=== PATIENT | male | born 1960 | race Caucasian/White ===

== ENCOUNTER 2017-08-30 06:26 | Day surgery (SDC) | payer OTHER ==
[2017-08-29 16:39] VITALS: BMI 28.8
[2017-08-30] MEDS ORDERED: Fluorouracil 100 MG, Enoxaparin Sodium 25 MG, EPINEPHrine 0.3 MG in Ophthalmic Irrigati... IVPB SCH (06:30)
[2017-08-30] MEDS ORDERED: Phenylephrine 2.5% Ophth Soln 5 ML BOT FS SCH (06:30)
[2017-08-30] MEDS ORDERED: Cyclopentolate 1% Opth Drop 2 ML BOT FS SCH (06:30)
[2017-08-30] MEDS ORDERED: Phenylephrine 2.5% Ophth Soln 5 ML BOT ONE (06:56)
[2017-08-30] MEDS ORDERED: Cyclopentolate 1% Opth Drop 2 ML BOT ONE (06:56)
[2017-08-30] MEDS ORDERED: Midazolam HCl 2 mg/2 ml Vial ONE (07:49)
[2017-08-30] MEDS ORDERED: Fentanyl 100 MCG/2 ML VIAL ONE (07:49)
[2017-08-30] MEDS ORDERED: Diprivan 20 ML ONE (07:49)
[2017-08-30] MEDS ORDERED: Propofol 200 MG/20 ML VIAL ONE (07:57)
[2017-08-30] MEDS ORDERED: Lidocaine 2% MPF 10 ML AMP (For Epidural Use) ONE (07:57)
--- NOTE | 2017-08-30 09:19 | OP ---
DATE OF PROCEDURE: 08/30/2017 PREOPERATIVE DIAGNOSIS: Macular hole, left eye. POSTOPERATIVE DIAGNOSIS: Macular hole, left eye. PROCEDURE: Pars plana vitrectomy, internal limiting membrane peel, left eye. SURGEON: Max Womack M.D. ANESTHESIA: Local with monitored anesthesia care. COMPLICATIONS: None. PROCEDURE IN DETAIL: The patient was identified in the preoperative holding area. Appropriate info rmed consent for the planned surgical procedure on the left eye had been obtained. The patient was transported to the operative suite where appropriate cardiopulmonary monitoring was established. Lo shanika anesthesia was obtained using retrobulbar and modified lid block using 50/50 mixture of 4% lidoc nupur and 0.75% bupivacaine. The patient was prepped and draped in the usual sterile manner for opht halmic surgery on the left eye. Lid speculum was placed in the left eye. The 25-gauge trocars were placed in conjunctiva and sclera supratemporally, inferotemporally, and supranasally. Infusion varinder e was placed inferotemporally. Light pipe and vitreous cutter were inserted into the eye. Core of vitrectomy was performed. Indocyanine green dye was infused onto the posterior pole x1, identifying the internal limiting membrane. This was elevated using membrane scraper in the periphery and peel ed across the macula in 1 piece. Wide field viewing system was used to verify, peripheral laser was attached. Complete air fluid exchange was performed with 10 minutes being allowed for fluid to levy in posteriorly. A 28% sulfur hexafluoride gas was infused the eye. Trocars were removed. Supratem poral and supranasal sclerotomies were sutured closed. Retrobulbar Kenalog and subconjunctival Ance f were placed. Antibiotic ointment was placed, and the eye was patched and shielded. The patient w as taken to the postoperative recovery unit in good condition having suffered no immediate periopera tive complications. DISCHARGE INSTRUCTIONS: The patient was instructed to keep patch and shield on, avoid lifting or be nding, avoid flat on back positioning, and follow up in the morning with Dr. Womack.
== END 2017-08-31 09:41 | disposition home or self-care (01) ==
LOC: SDC 06:26
PROVIDERS: ATTEND Ophthalmology Retina Specialist
PROC: 08NF3ZZ Release Left Retina, Percutaneous Approach (ICD-10-PCS; principal; 2017-08-30)
PROC: 08T53ZZ Resection of Left Vitreous, Percutaneous Approach (ICD-10-PCS; principal; 2017-08-30)
DX: H35.342 Macular cyst, hole, or pseudohole, left eye (principal); E78.5 Hyperlipidemia, unspecified; K21.9 Gastro-esophageal reflux disease without esophagitis; F42.9 Obsessive-compulsive disorder, unspecified; Z79.82 Long term (current) use of aspirin; Z79.899 Other long term (current) drug therapy; Z98.42 Cataract extraction status, left eye; Z96.1 Presence of intraocular lens; Z96.7 Presence of other bone and tendon implants; Z90.49 Acquired absence of other specified parts of digestive tract; Z98.890 Other specified postprocedural states
CPT/HCPCS: 67025; J0171; J1650; J2001; J2250; J2704; J3010; J9190

== ENCOUNTER 2023-12-06 08:44 | Day surgery (SDC) | payer OTHER ==
[2023-12-05 12:33] VITALS: BMI 28.2
[~2023-12-06 08:44] MED LIST: Fluorouracil 100 MG, Enoxaparin 25 MG, EPINEPHrine 0.3 MG in Ophthalmic Irrigation Solu... IRR SCH
[2023-12-06] MEDS ORDERED: Cyclopentolate 1% Opth Drop 2 ML BOT ONE (09:00)
[2023-12-06] MEDS ORDERED: PHENYLephrine 2.5% Ophth Soln 15 ml Bottle ONE (09:00)
[2023-12-06] MEDS ORDERED: Midazolam HCl 2 mg/2 ml Vial ONE (09:22)
[2023-12-06] MEDS ORDERED: fentaNYL 50 mcg/mL 1 mL Vial ONE ×2 (09:22→09:46)
[2023-12-06] MEDS ORDERED: Maxitrol 0.1% Opth Oint 3.5 GM TUBE ONE (09:27)
[2023-12-06] MEDS ORDERED: CEFAZOLIN 1 GM VIAL ONE (09:27)
[2023-12-06] MEDS ORDERED: Lidocaine 4% PF 5 ML AMP ONE (09:27)
[2023-12-06] MEDS ORDERED: Lidocaine 1% PF 5 ML VIAL ONE (09:27)
[2023-12-06] MEDS ORDERED: Triamcinolone 40 MG/ML VIAL ONE (09:27)
[2023-12-06] MEDS ORDERED: PROPOFOL 200 MG/20 ML VIAL ONE (09:27)
[2023-12-06] MEDS ORDERED: Bupivacaine 0.75% 10 ML VIAL ONE (09:27)
== END 2023-12-06 11:13 | disposition home or self-care (01) ==
LOC: SDC 08:44
PROVIDERS: ATTEND Ophthalmology Retina Specialist
PROC: 08T43ZZ Resection of Right Vitreous, Percutaneous Approach (ICD-10-PCS; principal; 2023-12-06)
DX: H33.021 Retinal detachment with multiple breaks, right eye (principal)
CPT/HCPCS: 67025; J0171; J0690; J1650; J2250; J2704; J3010; J3301; J3490; J9190